=== PATIENT | male | born 1960 | race Caucasian/White ===

== ENCOUNTER 2018-12-22 17:14 | Emergency (ER) | payer OTHER ==
[2018-12-22] MEDS ORDERED: KETOROLAC 30 MG/1 ML SDV IVP ONE (17:23)
[2018-12-22] MEDS ORDERED: NS 1,000 ML IV ONE (17:23)
[2018-12-22] MEDS ORDERED: METOCLOPRAMIDE 10 MG/2 ML VIAL IVP ONE (17:23)
--- NOTE | 2018-12-22 17:27 | EDPHY ---
H & P Stated Complaint: Headache Time Seen by Provider: 12/22/18 17:17 HPI/ROS: CHIEF COMPLAINT: Headache, suddenly worsened HISTORY OF PRESENT ILLNESS: Patient is a 58-year-old man who developed a mild headache 4 days ago. Two days ago it became more intense but seemed to improve yesterday. Today he was out coughing with friends when it became significantly worse. He then became nauseous and began hyperventilating and had paresthesias in both hands. No history of cardiac or pulmonary disease. He presented to an urgent care who called EMS. EMS gave him Zofran and his nausea improved. They obtained a 12 lead EKG is unremarkable. He had clear breath sounds and is saturating 98% on room air. He did not vomit. No diarrhea. No fever. No recent trauma. No chest pain. He does feel lightheaded. Severity: Moderate Modifying factors: The improved with Zofran REVIEW OF SYSTEMS: Constitutional: denies: chills, fever, recent illness, recent injury EENTM: denies: blurred vision, double vision, nose congestion Respiratory: denies: cough, shortness of breath Cardiac: denies: chest pain, irregular heart rate, palpitations Gastrointestinal/Abdominal: denies: abdominal pain, diarrhea, nausea, vomiting, blood streaked stools Genitourinary: denies: dysuria, frequency, hematuria, pain Musculoskeletal: denies: joint pain, muscle pain Skin: denies: lesions, rash, jaundice, bruising Neurological: See HPI denies: weakness Hematologic/Lymphatic: denies: blood clots, easy bleeding, easy bruising Immunologic/allergic: denies: HIV/AIDS, transplant 10 systems reviewed and negative except as noted EXAM: GENERAL: Well-appearing, overweight and in no acute distress. HEAD: Atraumatic, normocephalic. EYES: Pupils equal round and reactive to light, extraocular movements intact, sclera anicteric, conjunctiva are normal. ENT: TMs normal, nares patent, oropharynx clear without exudates. Moist mucous membranes. NECK: Normal range of motion, supple without lymphadenopathy or JVD. LUNGS: Breath sounds clear to auscultation bilaterally and equal. No wheezes rales or rhonchi. HEART: Regular rate and rhythm without murmurs, rubs or gallops. ABDOMEN: Soft, nontender, normoactive bowel sounds. No guarding, no rebound. No masses appreciated. BACK: No CVA tenderness, no spinal tenderness, step-offs or deformities EXTREMITIES: Normal range of motion, no pitting or edema. No clubbing or cyanosis. NEUROLOGICAL: Cranial nerves II through XII grossly intact. Normal speech, normal gait. 5/5 strength, normal movement in all extremities, normal sensation , normal reflexes PSYCH: Normal mood, normal affect. SKIN: Warm, dry, normal turgor, no visible rashes or lesions. Source: Patient Exam Limitations: No limitations - Personal History Current Tetanus Diphtheria and Acellular Pertussis (TDAP): Unsure - Medical/Surgical History Hx Asthma: No Hx Chronic Respiratory Disease: No Hx Diabetes: No Hx Cardiac Disease: No Hx Renal Disease: No Hx Cirrhosis: No Hx Alcoholism: No Hx HIV/AIDS: No Hx Splenectomy or Spleen Trauma: No Other PMH: GOUT. - Family History Significant Family History: No pertinent family hx - Social History Smoking Status: Never smoked Alcohol Use: None Constitutional: Initial Vital Signs Temperature (C) 36.5 C 12/22/18 17:18 Heart Rate 69 12/22/18 17:18 Respiratory Rate 18 12/22/18 17:18 Blood Pressure 156/103 H 12/22/18 17:18 O2 Sat (%) 96 12/22/18 17:18 O2 Delivery Mode Room Air O2 (L/minute) 2 Allergies/Adverse Reactions: No Known Allergies Allergy (Unverified 12/22/18 17:23) Home Medications: Medication Instructions Recorded Allopurinol 12/22/18 Metoclopramide [Reglan 10 mg tab 10 mg PO BID PRN #10 tab 12/22/18 (RX)] Medical Decision Making - Diagnostics EKG Interpretation: An EKG obtained and was read and documented in trace view. Please see trace view for full reading and report. Sinus rhythm, no acute ischemic changes. Imaging Results: Imaging Impressions Head CT 12/22/18 17:24 Impression: 1. No significant intracranial abnormality seen. If symptoms worsen, additional imaging may be necessary. Findings discussed with Chris Abernathy M.D. at 19:07 hour, 12/22/2018. Head CTA 12/22/18 18:[address] angiogram of the neck. 2. Normal CT angiogram of the [place], as detailed above. Note: All calculations were performed using NASCET criteria. Findings discussed with Chris Abernathy M.D. at 19:07 hour, 12/22/2018. Neck CTA 12/22/18 18:[address]: [address] angiogram of the neck. 2. Normal CT angiogram of the [place], as detailed above. Note: All calculations were performed using NASCET criteria. Findings discussed with Chris Abernathy M.D. at 19:07 hour, 12/22/2018. Imaging: Discussed imaging studies w/ orthopedically impaired teacher Radiologist ED Course/Re-evaluation: Patient's lab work and CT are reassuring. He has not had a chest x-ray but declines one. He thinks that it is his headache that is the primary concern not respiratory or cardiac. He states that the headaches he had twice in the last 4 days have been extremely severe and he typically never has headaches. He is obviously concerned. He feels much better after medication and sleeping. He states that this is definitely the worst headache of his life. He does occasionally have his [facility] work done [facility] [place] and did yesterday. We discussed options and will proceed with CT angio. He is declining LP at this time. 7:00 p.m. Patient is feeling completely better. He has been up and about. He is asking for prescription of Reglan. We discussed the CT angio which is also reassuring. He declines further workup or testing. I will refer him to Neurology. He is symptom free currently. No chest pain. No shortness of breath. Differential Diagnosis: Partial list of the Differential diagnosis considered include but were not limited to; severe headache, migraine, aneurysm, dissection and although unlikely based on the history and physical exam, I also considered meningitis, fracture, concussion, acute coronary disease, PE, dissection. - Data Points Laboratory Results: Laboratory Results 12/22/18 17:10 12/22/18 17:10 12/22/18 12/22/18 12/22/18 17:22 17:10 17:10 WBC RBC Hgb Hct MCV MCH MCHC RDW Plt Count MPV Neut % (Auto) Lymph % (Auto) [place] % (Auto) Eos % (Auto) Baso % (Auto) Nucleat RBC Rel Count Absolute Neuts (auto) Absolute Lymphs (auto) Absolute Monos (auto) Absolute Eos (auto) Absolute Basos (auto) Absolute Nucleated RBC Immature Gran % Immature Gran # PT 13.1 SEC SEC (12.0-15.0) INR 1.03 (0.83-1.16) APTT 24.6 SEC SEC (23.0-38.0) D-Dimer < 0.27 ug/mLFEU ug/mLFEU (0.00-0.50) Sodium 138 mEq/L mEq/L (135-145) Potassium 3.8 mEq/L mEq/L (3.5-5.2) Chloride 106 mEq/L mEq/L (97-110) Carbon Dioxide 18 mEq/l L mEq/l (22-31) Anion Gap 14 mEq/L mEq/L (6-14) BUN 18 mg/dL mg/dL (7-23) Creatinine 1.0 mg/dL mg/dL (0.7-1.3) Estimated GFR > 60 Glucose 151 mg/dL H mg/dL (70-100) Calcium 9.5 mg/dL mg/dL (8.5-10.4) POC Troponin I 0.00 ng/mL ng/mL (0.00-0.08) 12/22/18 17:10 WBC 9.72 10^3/uL H 10^3/uL (3.80-9.50) RBC 5.71 10^6/uL 10^6/uL (4.40-6.38) Hgb 16.8 g/dL g/dL (13.7-17.5) Hct 46.7 % % (40.0-51.0) MCV 81.8 fL fL (81.5-99.8) MCH 29.4 pg pg (27.9-34.1) MCHC 36.0 g/dL g/dL (32.4-36.7) RDW 13.1 % % (11.5-15.2) Plt Count 234 10^3/uL 10^3/uL (150-400) MPV 11.1 fL fL (8.7-11.7) Neut % (Auto) 72.9 % % (39.3-74.2) Lymph % (Auto) 19.2 % % (15.0-45.0) [place] % (Auto) 6.4 % % (4.5-13.0) Eos % (Auto) 0.3 % L % (0.6-7.6) Baso % (Auto) 0.7 % % (0.3-1.7) Nucleat RBC Rel Count 0.0 % % (0.0-0.2) Absolute Neuts (auto) 7.08 10^3/uL H 10^3/uL (1.70-6.50) Absolute Lymphs (auto) 1.87 10^3/uL 10^3/uL (1.00-3.00) Absolute Monos (auto) 0.62 10^3/uL 10^3/uL (0.30-0.80) Absolute Eos (auto) 0.03 10^3/uL 10^3/uL (0.03-0.40) Absolute Basos (auto) 0.07 10^3/uL 10^3/uL (0.02-0.10) Absolute Nucleated RBC 0.00 10^3/uL 10^3/uL (0-0.01) Immature Gran % 0.5 % % (0.0-1.1) Immature Gran # 0.05 10^3/uL 10^3/uL (0.00-0.10) PT INR APTT D-Dimer Sodium Potassium Chloride Carbon Dioxide Anion Gap BUN Creatinine Estimated GFR Glucose Calcium POC Troponin I Medications Given: Discontinued Medications Sodium Chloride (Ns) 1,000 mls @ 0 mls/hr IV ONCE ONE; Wide Open PRN Reason: Protocol Stop: 12/22/18 17:24 Last Admin: 12/22/18 17:37 Dose: 1,000 mls Ketorolac Tromethamine (Toradol) 30 mg IVP EDNOW ONE Stop: 12/22/18 17:24 Last Admin: 12/22/18 17:37 Dose: 30 mg Metoclopramide HCl (Reglan Injection) 10 mg IVP EDNOW ONE Stop: 12/22/18 17:24 Last Admin: 12/22/18 17:37 Dose: 10 mg Point of Care Test Results: Chemistry 12/22/18 17:22 POC Troponin I 0.00 ng/mL ng/mL (0.00-0.08) Departure - Departure Disposition: Home, Routine, Self-Care Clinical Impression: Headache Qualifiers: Headache type: unspecified Headache chronicity pattern: acute headache Intractability: not intractable Qualified Code(s): R51 - Headache Condition: Fair Instructions: Acute Headache (ED) Referrals: Patient,NotPresent [Unknown] - As per Instructions Fermin Joseph DO [Medical Doctor] - 5-7 days, call for appt. Prescriptions: Metoclopramide [Reglan 10 mg tab (RX)] 10 mg PO BID PRN #10 tab PRN Reason: Headache
[2018-12-22 17:38] LABS: PLATELET COUNT 234 10^3/uL (150-400)
--- NOTE | 2018-12-22 17:46 | CPEKG ---
Test Reason : OPEN Blood Pressure : / mmHG Vent. Rate : 075 BPM Atrial Rate : 075 BPM P-R Int : 157 ms QRS Dur : 084 ms QT Int : 381 ms P-R-T Axes : 020 013 030 degrees QTc Int : 426 ms Sinus rhythm Confirmed by Chris Abernathy ([id number]) on 12/22/2018 5:46:41 PM Referred By: Chris Abernathy Confirmed By:Chris Abernathy
[2018-12-22 17:49] LABS: INR 1.03 (0.83-1.16); PROTIME(PATIENT) 13.1 SEC (12.0-15.0)
[2018-12-22] MEDS ORDERED: IOPAMIDOL (ISOVUE 370) 100 ML BTL IV ONE (18:23)
[2018-12-22 19:17] VITALS: BP 122/84
== END 2018-12-22 19:16 | disposition home or self-care (01) ==
LOC: EDUNIT#
DX: R51 Headache (principal)
CPT/HCPCS: 84484-ER; 96374; J1885; J2765; Q9967

== ENCOUNTER → 2019-01-09 | Outpatient (CLI) | payer OTHER | LOC: EMCIMAGING 14:45 | PROVIDERS: ATTEND Psychiatry & Neurology Neurology | DX: G43.909 Migraine, unspecified, not intractable, without status migrainosus (principal); H93.11 Tinnitus, right ear; H91.91 Unspecified hearing loss, right ear | CPT/HCPCS: 70553-PN ==